=== PATIENT | female | born 1995 ===

== ENCOUNTER 2024-02-12 11:09 | Outpatient (CLI) | payer OTHER, SELFPAY | END 2024-02-12 11:10 | disposition home or self-care (01) | PROVIDERS: PCP Family Medicine; Visit Provider Family Medicine | DX: E78.2 Mixed hyperlipidemia (principal); Z13.228 Encounter for screening for other metabolic disorders | CPT/HCPCS: 80053; 80061 ==

== ENCOUNTER 2024-08-23 09:31 | Outpatient (CLI) | payer OTHER, SELFPAY ==
--- OUTSIDE RECORDS SUMMARY | 2024-08-23 09:36 | XMS_ITS | Clinical Summary ---
Author Organization [facility] Address [address] [place] [address] Care Team Providers Care Product Introduction Manager Name Role Phone Clinician, Not Found MD Primary Care Provider Un available Source Comments You are receiving this document as you are listed as the primary care provider,follow-up provider, or the patient has been referred to you for consultation.This is in compliance with the Medicare and[facility] Incentive Program,which states Providers who transition their patient to another setting of careor provider of care or refers their patient to another provider of care shouldprovide summary care record for each transition of care or referral. [facility] Allergies Active Allergy Reactions Criticality Noted Date Comments Amoxicillin Hives High 09/02/2019 Azithromycin Other, see comments Low 08/19/2018 Stomach pain Nuts Hives,Angioedema High 10/14/2019 Tree nuts Medications Medication Sig Dispensed Refills Start Date End Date Status fluticasone (FLOVENT HFA) 110 mcg/actuation inhaler Inhale 1 Puff two times a day. Rinse mouth/gargle after use Active ALBUterol 1.25 mg/3 mL (ACCUNEB) 1.25 MG/3ML nebulizer solution Inhale 1.25 mg every 6 hours as needed for Wheezing. Active fluticasone propionate (FLONASE) 50 MCG/ACT nasal solution Place 2 Sprays into both nostrils daily. Active B COMPLEX VITAMINS OR 1 Tablet. Act parker ALBUTEROL IN 1-2 Puffs as needed. Active Fexofenadine HCl (SERGIO ALLERGY OR) Acti ve Vit-Fe Fumarate-FA ( OR) Active Probiotic Product (PROBIOTIC DAILY OR) Take 1 Capsule by mouth. Active acetaminophen (TYLENOL) 325 MG tablet Take 650 mg by mouth every 4 hours as needed. 08/23/2018 Active ipratropium-albuterol (DUONEB) 0.5-2.5 (3) mg/3ml nebulizer solution Inhale 3 mL every 4 hours as needed. 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 Records in CareEverywhere. Thought related to Nuvaring use. No family history of blood clots. Supervision of normal first , antepartu m 07/22/2020 S/P dilation and curettage 10/14/2019 Overview (10/14/2019): Miscarriage 2019 Asthma 02/28/2011 Overview (07/23/2020): Followed by [facility] in [place]. Asthma attack that required hospitalized when she was ~12 years old Resolved Problems Problem Noted Date Diagnosed Date Resolved Date Missed 10/10/2019 07/23/2020 Overview (10/10/2019): Added automatically from request for surgery [id number] Immunizations Name Administration Dates Next Due 4vHPV (Gardasil) 03/25/2009,11/25/2008, 8 DTaP 05/07/2001, 7,04/04/1996,1995,1995 Flu Vac (3+ yrs) 08/09/2019 HepB Adult (Heplisav-B, 19+ yrs, 2 dose series) 04/04/1996,1995,1995 HepB, Unspecified Formulation 04/04/1996, 996,1995 Hib, Unspecified Formulation 01/02/1997, 04/04/1996,01/26/1996,1995 Influenza IIV4 (Quadrivalent ) 0.5mL ([id number]) 07/22/2020,11/26/2019,07/16/2018,2016,09/29/2014 MCV4 (Darrenactra) 05/20/2008 MMR 05/07/2001,01/02/1997 Td 03/14/2019 Tdap 05/20/2008 Varicella 11/25/2008,10/04/1996 Family History Medical History Relation Name Comments Heart Disease Father High Cholesterol Father Hypertension Father Diabetes Mother Thyroid Disorder Mother Cancer Maternal Grandfather Diabetes Maternal Grandfather Diabetes Maternal Grandmother Heart Disease Maternal Grandmother High Cholesterol Maternal Grandmother Hypertension Maternal Grandmother Thyroid Disorder Maternal Grandmother Heart Disease Paternal Grandfather Osteoporosis Paternal Grandmother Relation Name Status Comments Father Alive Mother Alive Maternal Grandfather Maternal Grandmother Paternal Grandfather Alive Paternal Grandmother Alive Social History Tobacco Use Types Packs/Day Years Used Date Smoking Tobacco: Never Smokeless Tobacco: Never Alcohol Use Standard Drinks/Week Comments Not Currently 0 (1 standard drink = 0.6 oz pur e alcohol) PHQ-2 Answer Date Recorded PHQ-2 Score 0 01/14/2020 Sex and Gender Information Value Date Recorded Sex Assigned at Not on file Gender Identity Not on file Sexual Orientation Not on file Last Filed Vital Signs Vital Sign Reading Time Taken Comments Blood Pressure 102/61 09/02/2020 8:05 AM EDUCATION RESEARCH ANALYST Pulse 81 09/02/2020 8:05 AM EDUCATION RESEARCH ANALYST Temperature 36.4 ??C (97.5 ??F) 10/14/2019 2:41 PM CS T Respiratory Rate 14 10/14/2019 3:30 PM EDUCATION RESEARCH ANALYST Oxygen Saturation 97% 10/14/2019 3:30 PM EDUCATION RESEARCH ANALYST Inhaled Oxygen Concentration - - Weight 70.3 kg (155 lb) 09/02/2020 8:05 AM EDUCATION RESEARCH ANALYST Height 167.6 cm (5' 6) 07/22/2020 9:12 AM CDT Body Mass Index 25.02 07/22/2020 9:12 AM CDT Plan of Treatment Health Maintenance Due Date Last Done Comments Cervical Cancer Screening Due 1995 Asthma ACT 1999 Pneumococcal (1 - PCV) 2001 Adult Preventive Visit 2013 COVID-19 Vaccine ( season) 2024 02/15/2021, 01/25/2021 Influenza (#1) 2024 07/21/2021, 07/09, 11/26/2019, Additional history exists DTaP/Tdap/Td (9 - Tdap) 12/29/2030 12/30/19 21, 03/14/2019, 05/20/2008, Additional history exists Zoster/Shingles (1 of 2) 2045 HepB Completed 04/04/1996, 03/10, 1995, Additional history exists Hib Completed 01/02/1997, 03/10, 01/26/1996, Additional history exists MCV4 Aged Out 05/20/2008 No longer eligi ble based on patient's age to complete this topic Varicella Completed 11/25/2008, 10/04/1996 HPV Vaccine Completed 03/25/2009, 11/09, 05/20/2008 HIV Screening (Preventive Services) Completed 07/22/2020 Hep C Screening (Preventive Services) Completed 11/05/2021 HepA Aged Out No longer eligi ble based on patient's age to complete this topic IPV (Polio) Aged Out No longer eligi ble based on patient's age to complete this topic RSV Aged Out No longer eligi ble based on patient's age to complete this topic Procedures Procedure Name Priority Date/Time Associated Diagnosis Comments HEPATITIS C ANTIBODY, WITH REFLEX Routine 11/05/2021 8:39 AM EDUCATION RESEARCH ANALYST Health examination of defined subpopulation HIV 1/2 AG/AB 4TH GEN Routine 07/22/2020 10:17 AM CDT Supervision of normal first , antepartum Screening examination for venereal disease from Last 3 Months or Most Recently Relevant to Health Maintenance Results * Hepatitis C Virus Fiorella with Reflex (11/05/2021 8:39 AM EDUCATION RESEARCH ANALYST) Hepatitis C Antibody Negative (Non Reactive) Negative (Non Reactive) 11/05/2021 4:44 PM EDUCATION RESEARCH ANALYST [facility] Comment:Antibodies to HCV no t detected. Does not exclude the possiblity of exposure to HCV. Blood Venipuncture / Unknown 11/05/2021 8:39 AM EDUCATION RESEARCH ANALYST 11/05/2021 8:39 AM EDUCATION RESEARCH ANALYST Trevor Lara MD LAB_1 [facility] [address] [place], [place] [id number] [place] [address] * HIV 1/2 Ag/Ab 4th Generation (07/22/2020 10:17 AM CDT) HIV 1/2 Antigen/Antib rosie (4th generation) Negative (Non Reactive) Negative (Non Reactive) 07/22/2020 11:17 AM CDT [facility] Comment:HIV-1 p24 Antigen an d HIV-1/HIV-2 Antibody not detected Blood Venipuncture / Unknown 07/22/2020 10:17 AM CDT 07/22/2020 10:33 AM CDT Nolvia Robbins APRN, LAM LAB_1 Performing Organization Address City/[facility]/ZIP Co de Phone Number [facility] [address] from Last 3 Months or Most Recently Relevant to Health Maintenance Advance Directives * Full Code (Latest Code Status on File) Date Activated Date Inactivated Comments 10/14/2019 2:40 PM 10/14/2019 6:12 PM Care Teams Product Introduction Manager Relationship Specialty Start Date End Date Clinician, [place], [place] [address] PCP - General 07/20/20
--- OUTSIDE RECORDS SUMMARY | 2024-08-23 09:36 | XMS_ITS | Clinical Summary ---
Author Organization [facility] Address [place], [place] [address] Care Team Providers Care Coal Weigher Name Role Phone None Primary Care Provider Unavailabl e Allergies Active Allergy Reactions Criticality Noted Date Comments Amoxicillin Hives High 07/14/2016 Azithromycin Other - Describe In Comment Field Low 08/19/2018 Stomach pain Stomach pain Tree Nut Angioedema,Hives High 10/14/2019 Tree nuts Tree Nuts Anaphylaxis High 09/24/2020 Medications Medication Sig Dispensed Refills Start Date End Date Status albuterol HFA (PRO-AIR; VENTOLIN; PROVENTIL) 90 mcg/actuation inhalerIndications: Seasonal allergies Inhale 2 Puffs by mouth 4 times daily if needed for Shortness Of Breath or Wheezing. 1 Each 10/19/2022 Active fexofenadine (Yessica Allergy) 180 mg tabletIndications:S easonal allergies Take 180 mg by mouth once daily. 60 Tablet 10/19/2022 Active fluticasone (50 mcg per actuation) nasal solution (FLONASE)Indication s:Seasonal allergies Inhale 1 Hatch into affected nostril(s) once daily. 15.8 mL 10/19/2022 Active fluconazole (Diflucan) 150 mg tabletIndications:V ulvovaginal candidiasis Take one tablet oral now. Repeat in 3 days if no improvement in symptoms. 2 Tablet 06/23/2023 Active triamcinolone (ARISTOCORT; KENALOG) 0.1 % creamIndications:Ra sh Apply topically to affected area(s) 2 times daily if needed (itchy rash). 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 Tarsal tunnel syndrome 11/07/2017 Pain in both feet 10/17/2017 Anxiety Resolved Problems Problem Noted Date Diagnosed Date Resolved Date Premature rupture of membran es with onset of labor within 24 hours of rupture 03/06/2021 021 senior living current use of anticoagulant 02/20/2021 04/20/2021 Heart burn 12/15/2020 04/20/2021 Nausea and vomiting in 10/19/2020 04/20/2021 Encounter for supervision of other normal , first trimester 09/25/2020 04/20/2021 Overview (09/25/2020): SAB x1 w/ D&C (10/2019) Prepregnancy BMI: need height and weight at 1st OB visit Early GCT: indicated ASA: consider based on risks Dated by: U/S (07/20/20) Would accept blood products: yes Pertinent medical information: thromboembolism (08/2018), on Lovenox injections daily Previous deliveries reviewed by MD: screening: Screening US: Contraception plan: Rubella: Rh pending GCT: Hgb: Tdap: GBS: Immunizations Name Administration Dates Next Due COVID-19 vaccine ([employer] NTech 30mcg/0.3mL) ALEX JEFFERSON 02/15/2021,01/25/2021 DTaP 05/07/2001, 7,04/04/1996,01/20,1995 Hep B (Hepatitis B (Adult) R ecombinant Adjuvanted) 04/04/1996,1995,1995 Hepatitis B (Adult) 11/24/2022,10/19/2022 Hepatitis B, Unspecified 04/04/1996,1995,0 1995 Hib Conjugate, Unspecified 01/02/1997,,01/26/1996,11/30 Human Papilloma Virus Vaccine 03/25/2009, 009,05/20/2008 Influenza Virus, Unspecified 07/16/2018,06/27/20 17,09/29/2014 Influenza, IIV3 (Age >=3 years) 08/09/2019 Influenza, IIV4 10/19/2022,,07/22/2020,11/26,07/16/2018,06/27/2017,09/29/2014 MMR 05/07/2001,01/02/1997 MMR, Unspecified 05/07/2001,01/02/1997 Meningococcal Vaccine (Menactra) 05/20/2008 Td (Age >=7 Years) 03/14/2019 Tdap 12/29/2020,05/20/2008 Tdap, Unspecified 05/07/2001, 7,04/04/1996,01/20,1995 Varicella Vaccine 11/25/2008,10/04/1996 Family History Medical History Relation Name Comments Hypertension Father Lung cancer Maternal Grandfather Diabetes Maternal Grandmother Allergies Mother Asthma Mother Diabetes Mother type 2 Other Mother Reynaud's disea se Scleroderma Mother Heart Disease Paternal Grandfather Alzheimer's disease Paternal Grandmother Cancer-breast No Family History Cancer-colon No Family History great gran dmother wtih breast cancer Cancer-ovarian No Family History Uterine cancer No Family History Relation Name Status Comments Father Alive Maternal Grandfather Maternal Grandmother Mother Alive Paternal Grandfather Alive Paternal Grandmother Alive Social History Tobacco Use Types Packs/Day Years Used Date Smoking Tobacco: Never Smokeless Tobacco: Never Tobacco Cessation:Counseling Given: Not Answered Alcohol Use Standard Drinks/Week Comments Not Currently 0 (1 standard drink = 0.6 oz pur e alcohol) occasional PHQ-2 Answer Date Recorded PHQ-2 TOTAL SCORE 0 06/21/2023 Social Connections Answer Date Recorded Frequency of Communication with Friends and Fami ly Not on file 2021 Financial Resource Strain Answer Date R ecorded Difficulty of Paying Living Expenses Not on file 2021 Difficulty of Paying Living Expenses Not on file 2021 Sex and Gender Information Value Date Recorded Sex Assigned at Not on file Gender Identity Not on file Sexual Orientation Not on file Obstetrics History Para Term AB IAB SAB Ectopic Multiple Livin g Live Births 2 1 1 1 1 1 1 Date Outcome GA Total Labor Labor/2nd/3rd Weight Sex Type Anes PTL Mahnaz A1 A5 Name Clin 2019 SAB 2020 Term 39w 1d 30h 34m 28h 13m/2h 18m/0h 03m 3.5 kg (7 lb 11.5 oz) M VAGINA L SUNNY Epidur al Livin g 8 9 Semaj MASON v, Dimit ri Alexa ndrov ich, MD Complications:Prolonged labo r (>20 hours),Prolonged latent phase Delivery Location:Hospital ( [address]) Last Filed Vital Signs Vital Sign Reading Time Taken Comments Blood Pressure 104/68 09/14/2023 2:33 PM SECONDARY SET UP MAN Pulse 78 09/14/2023 2:33 PM SECONDARY SET UP MAN Temperature 36.5 ??C (97.7 ??F) 09/14/2023 2:33 PM CS T Respiratory Rate 19 09/14/2023 2:33 PM SECONDARY SET UP MAN Oxygen Saturation 95% 09/14/2023 2:33 PM SECONDARY SET UP MAN Inhaled Oxygen Concentration - - Weight 74.8 kg (165 lb) 09/14/2023 2:33 PM SECONDARY SET UP MAN Height 167.6 cm (5' 5.98) 06/21/2023 8:53 AM CD T Body Mass Index 26.64 06/21/2023 8:53 AM CDT Plan of Treatment Health Maintenance Due Date Last Done Comments HIV for age 15-65 2010 Hepatitis C screening for age 18-79 2013 COVID-19 vaccine series ( season) 2024 02/15/2021, 01/25/2021 Influenza for age 9-49 06/09/2024 , 07/21/2021, 07/22/2020, Additional history exists BMI (ht and wt on same day) for age 18+ 06/21/2024 06/21/2023, 10/19/2022, 07/11/2021, Additional history exists Depression screening for age 12+ 06/21/2024 06/21/2023, 10/22/2022, 10/19/2022, Additional history exists Pap test for age 21-65 10/19/2027 10/19/2022, 2022 Tetanus booster 12/29/2030 12/29/2020, 06/0 03/2019, 05/20/2008, Additional history exists Tdap Completed 12/29/2020, 05/09, 05/07/2001, Additional history exists Pneumococcal series for age 6-64 Aged Out No longer eligible based on patient's age to complete this topic Procedures Procedure Name Priority Date/Time Associated Diagnosis Comments HPV HIGH RISK Routine 10/19/2022 3:25 PM SECONDARY SET UP MAN Pap smear for cervical cancer screening from Last 3 Months or Most Recently Relevant to Health Maintenance Results * HPV HIGH RISK (10/19/2022 3:25 PM SECONDARY SET UP MAN) TYPE 16 Negative Negative 10/25/2022 5:35 PM SECONDARY SET UP MAN [facility] TYPE 18 Negative Negative 10/25/2022 5:35 PM SECONDARY SET UP MAN [facility] OTHER HIGH RISK TYPES Negative Negative 10/25/2022 5:35 PM SECONDARY SET UP MAN [facility] Other (Cervical) Non-Blood / Unknown 10/19/2022 3:25 PM SECONDARY SET UP MAN 10/24/2022 8:02 AM SECONDARY SET UP MAN Narrative [facility] - 10/25/2022 5:35 PM SECONDARY SET UP MAN HPV types 16, 18, 31, 33, 35, 39, 45, 51, 52, 56, 58, 59, 66 and 68 DNA were undetectable or below the pre-set threshold. Methodology: Lucero Seth 4800 HPV Test Esper[facility] [address] [place] [address], from Last 3 Months or Most Recently Relevant to Health Maintenance Advance Directives * Full Code (Latest Code Status on File) Date Activated Date Inactivated Comments 03/06/2021 8:16 PM 03/09/2021 4:10 PM Question Answer Comments Code Status Discussion: Discussed Care Teams Coal Weigher Relationship Specialty Start Date End Date None . PCP - General 10/19/20
[2024-08-23 14:10] LABS: Chlamydia DNA Amplified* NOT DETECTED (No Detected); GC DNA Amplified* NOT DETECTED (No Detected)
== END 2024-08-23 09:32 | disposition home or self-care (01) ==
PROVIDERS: Visit Provider Registered Nurse
DX: N92.6 Irregular menstruation, unspecified (principal); Z11.3 Encounter for screening for infections with a predominantly sexual mode of transmission; Z11.4 Encounter for screening for human immunodeficiency virus [HIV]
CPT/HCPCS: 81513; 84443; 86703; 87481; 87491; 87591; 87661

== ENCOUNTER 2024-09-25 11:04 | Outpatient (CLI) | payer OTHER, SELFPAY | END 2024-09-25 11:05 | disposition home or self-care (01) | LOC: FRMREF 11:06 | PROVIDERS: Visit Provider Physician Assistant Medical | DX: R11.2 Nausea with vomiting, unspecified (principal); R20.2 Paresthesia of skin | CPT/HCPCS: 80053; 82607; 82728; 84443 ==

== ENCOUNTER 2024-09-27 11:27 | Outpatient (CLI) | payer OTHER, SELFPAY ==
[2024-09-27 22:25] LABS: Vitamin D 25 Hydroxy* 27 ng/mL (30-80)
== END 2024-09-27 11:28 | disposition home or self-care (01) ==
LOC: FRMREF 11:27
PROVIDERS: Visit Provider Family Medicine
DX: R51.9 Headache, unspecified (principal); R11.0 Nausea; R63.4 Abnormal weight loss; Z13.21 Encounter for screening for nutritional disorder
CPT/HCPCS: 82306; 86140; 86301; 86304

== ENCOUNTER 2024-10-08 07:52 | Outpatient (CLI) | payer OTHER, SELFPAY ==
--- NOTE | 2024-10-08 08:15 | CRLHL7_ITS ---
For Patients: As a result of the Century Cures Act, medical imaging exams and procedure reports are released immediately into your electronic medical record. You may view this report before your referring provider. If you have questions, please contact your health care provider. INDICATION: Abnormal weight loss. TECHNIQUE: Sagittal and axial T1, axial FLAIR, T2, diffusion-weighted, susceptibility weighted and gadolinium-enhanced multiplanar T1 weighted series of the brain. [id number] MRA images of the intracranial [place] arteries. 20 cc of Dotarem contrast utilized. FINDINGS: MRI brain: The lateral 3rd and 4th ventricles are normal in size and configuration. No evidence of recent ischemic infarction. No areas of diffusion restriction. No evidence of intracranial hemorrhage. No mass effect or midline shift. Few punctate foci of nonenhancing FLAIR/T2 hyperintensity within subcortical white matter are nonspecific findings. They may relate to migraine or minimal chronic microvascular ischemia. No periventricular white matter lesions. No enhancing intra-axial or extra-axial lesion. Brainstem and cerebellum appear normal. The orbits, sella turcica suprasellar cistern and skull base are unremarkable. There is minor mucosal thickening in the ethmoid sinuses. MRA [place]: The distal internal carotid arteries and basilar artery are widely patent hypoplastic distal left vertebral artery appears to terminate as plica. The anterior, middle and posterior cerebral arteries their proximal branches are unremarkable. No large vessel occlusion. No evidence of aneurysm or high-flow AV malformation. IMPRESSION: MRI Brain: 1. No evidence of acute infarction intracranial hemorrhage, mass or enhancing lesion. 2. Few punctate signal changes are nonspecific consistent with changes related to migraine headaches or mild chronic microvascular ischemia. MRA Brain: 1. Negative MRA exam of the proximal cerebral arteries. Dictated by Se Eli MD @ 10/10/2024 9:52:02 AM (Electronically Signed)
--- NOTE | 2024-10-08 09:00 | CRLHL7_ITS ---
For Patients: As a result of the Century Cures Act, medical imaging exams and procedure reports are released immediately into your electronic medical record. You may view this report before your referring provider. If you have questions, please contact your health care provider. INDICATION: Abnormal weight loss. TECHNIQUE: Sagittal and axial T1, axial FLAIR, T2, diffusion-weighted, susceptibility weighted and gadolinium-enhanced multiplanar T1 weighted series of the brain. [id number] MRA images of the intracranial [place] arteries. 20 cc of Dotarem contrast utilized. FINDINGS: MRI brain: The lateral 3rd and 4th ventricles are normal in size and configuration. No evidence of recent ischemic infarction. No areas of diffusion restriction. No evidence of intracranial hemorrhage. No mass effect or midline shift. Few punctate foci of nonenhancing FLAIR/T2 hyperintensity within subcortical white matter are nonspecific findings. They may relate to migraine or minimal chronic microvascular ischemia. No periventricular white matter lesions. No enhancing intra-axial or extra-axial lesion. Brainstem and cerebellum appear normal. The orbits, sella turcica suprasellar cistern and skull base are unremarkable. There is minor mucosal thickening in the ethmoid sinuses. MRA [place]: The distal internal carotid arteries and basilar artery are widely patent hypoplastic distal left vertebral artery appears to terminate as plica. The anterior, middle and posterior cerebral arteries their proximal branches are unremarkable. No large vessel occlusion. No evidence of aneurysm or high-flow AV malformation. IMPRESSION: MRI Brain: 1. No evidence of acute infarction intracranial hemorrhage, mass or enhancing lesion. 2. Few punctate signal changes are nonspecific consistent with changes related to migraine headaches or mild chronic microvascular ischemia. MRA Brain: 1. Negative MRA exam of the proximal cerebral arteries. Dictated by Se Eli MD @ 10/10/2024 9:51:32 AM (Electronically Signed)
== END 2024-10-08 07:53 | disposition home or self-care (01) ==
PROVIDERS: PCP Family Medicine; Visit Provider Family Medicine
DX: R63.4 Abnormal weight loss (principal); R51.9 Headache, unspecified; R11.0 Nausea; Z86.718 Personal history of other venous thrombosis and embolism
CPT/HCPCS: 70544; 70553; A9575

== ENCOUNTER 2025-04-09 14:12 | Outpatient (CLI) | payer OTHER, SELFPAY ==
[2025-04-09 19:05] LABS: Bacterial Vaginosis* Negative (Negative); Candida glab/krus NOT DETECTED (No Detected)
[2025-04-09 19:36] LABS: Chlamydia DNA Amplified* NOT DETECTED (No Detected); GC DNA Amplified* NOT DETECTED (No Detected)
== END 2025-04-09 14:13 | disposition home or self-care (01) ==
PROVIDERS: PCP Family Medicine; Visit Provider Registered Nurse
DX: Z11.3 Encounter for screening for infections with a predominantly sexual mode of transmission (principal); Z11.4 Encounter for screening for human immunodeficiency virus [HIV]; Z11.59 Encounter for screening for other viral diseases
CPT/HCPCS: 81513; 86592; 86593; 86703; 86780; 86803; 87340; 87481; 87491; 87591; 87661

== ENCOUNTER 2025-04-10 10:37 | Outpatient (CLI) | payer OTHER, SELFPAY ==
--- NOTE | 2025-04-10 10:45 | CRLHL7_ITS ---
For Patients: As a result of the Century Cures Act, medical imaging exams and procedure reports are released immediately into your electronic medical record. You may view this report before your referring provider. If you have questions, please contact your health care provider. CLINICAL HISTORY: pelvic pain COMPARISON: None. TECHNIQUE: 2D gavin-scale ultrasound. In addition, color Doppler and spectral Doppler analysis was performed of the pelvis using a transabdominal and transvaginal approach. Transvaginal imaging performed to better visualize the endometrial stripe and ovaries. FINDINGS: The myometrium has a normal uniform echotexture. The uterus measures 8.0 x 3.3 x 4.8 cm. The endometrial lining appears normal and measures 6.5 mm in thickness. Normal position of an IUD within the endometrial canal. The right ovary measures 1.5 x 2.2 x 1.7 cm in size and the left ovary measures 2.5 x 3.5 x 2.2 cm. The ovaries demonstrate normal arterial and venous blood flow on color Doppler and spectral Doppler analysis. Trace pelvic free fluid. Complex left ovarian cyst with hypoechoic internal echoes and irregular margins. No internal vascularity. IMPRESSION: Collapsing hemorrhagic left ovarian cyst measures 2.5 cm. Trace pelvic free fluid. No torsion. Good position of an IUD within the endometrial canal. Dictated by Ralph Gomez MD @ 04/10/2025 4:46:10 PM (Electronically Signed)
== END 2025-04-10 10:38 | disposition home or self-care (01) ==
LOC: US 10:38
PROVIDERS: PCP Family Medicine; Visit Provider Registered Nurse
DX: R10.2 Pelvic and perineal pain (principal); N83.202 Unspecified ovarian cyst, left side
CPT/HCPCS: 76830; 76856; 93976

== ENCOUNTER 2025-06-16 13:58 | Outpatient (CLI) | payer OTHER, SELFPAY | END 2025-06-16 13:59 | disposition home or self-care (01) | PROVIDERS: PCP Family Medicine; Visit Provider Family Medicine | DX: A53.0 Latent syphilis, unspecified as early or late (principal); Z13.6 Encounter for screening for cardiovascular disorders; Z13.9 Encounter for screening, unspecified | CPT/HCPCS: 80053; 80061; 86780 ==